=== PATIENT | male | born 1960 | race Caucasian/White ===

== ENCOUNTER 2020-11-28 11:06 | Emergency (ER) | payer SELFPAY ==
[~2020-11-28] VITALS: Ht 180.3 cm; Wt 83.9 kg
[2020-11-28] MEDS ORDERED: SINEMET 25-1001 EACH PO (16:45)
== END 2020-11-28 17:26 | disposition home or self-care (01) ==
LOC: ED 11:06
DX: R53.1 Weakness (principal); R25.1 Tremor, unspecified; Z87.891 Personal history of nicotine dependence
CPT/HCPCS: 70450; 70486; 80053; 82550; 84443; 85025; 99285-25